=== PATIENT | female | born 1970 | race Caucasian/White ===

== ENCOUNTER → 2016-07-22 | Outpatient (CLI) | payer SELFPAY ==
[~2016-07-22] MED LIST: DOXYCYLINE50 MG PO; FIORICET 325 MG1 TAB PO; Zofran4 MG PO
[2016-07-22 08:23] LABS: BASO # 0.1 10*3/uL (0.0-0.1); BASO % 0.6 % (0.0-1.0); EOS # 0.5 10*3/uL (0.0-0.4); EOS % 6.7 % (1.0-4.0); HEMATOCRIT 40.1 % (37.0-47.0); HEMOGLOBIN 13.2 g/dl (12.0-16.0); LYMPH % 37.7 % (27.0-41.0); MEAN CELL VOLUME 90.5 fl (81.0-99.0); MEAN CORPUSCULAR HGB 29.8 pg (27.0-31.0); MEAN CORPUSCULAR HGB CONC 32.9 g/dl (33.0-37.0); MEAN PLATELET VOLUME 10.4 fl (9.6-12.3); MONO # 0.7 10*3/uL (0.1-1.0); MONO % 9.4 % (3.0-9.0); NEUT # 3.6 10*3/uL (2.3-7.9); NEUT % 45.2 % (47.0-73.0); PLATELET COUNT AUTOMATED 270 10*3/uL (130-400); RED BLOOD COUNT 4.43 10*6/uL (4.10-5.10); RED CELL DISTRI WIDTH 12.7 % (0-14.5); WHITE BLOOD COUNT 7.9 10*3/uL (4.8-10.8)
[2016-07-22 08:47] LABS: ALBUMIN 3.6 gm/dl (3.1-4.5); ALKALINE PHOSPHATASE 48 U/L (45-117); BILIRUBIN, TOTAL 0.3 mg/dl (0.2-1.0); BUN 18 mg/dl (7-24); CARBON DIOXIDE 26 mmol/L (21-32); CHLORIDE 111 mmol/L (98-107); CHOLESTEROL 116 mg/dL (<200); EST GLOM FILT AFRICAN AMERICAN > 60 ml/min; GLUCOSE 88 mg/dL (65-99); POTASSIUM 4.4 mmol/L (3.5-5.1); SGOT/AST 9 IU/L (3-35); SGPT/ALT 16 U/L (12-78); SODIUM 144 mmol/L (136-145); TRIGLYCERIDES 68 mg/dl (<150); VLDL CHOLESTEROL 14 mg/dL (6-40)
[2016-07-22 08:56] LABS: HDL CHOLESTEROL 53 mg/dl (40-60); LDL CHOLESTEROL 49 mg/dL (9-159)
== END | disposition home or self-care (01) ==
LOC: LAB 07:48
PROVIDERS: Nurse Practitioner Family
DX: R53.83 Other fatigue (principal); R10.9 Unspecified abdominal pain; Z86.19 Personal history of other infectious and parasitic diseases

== ENCOUNTER → 2016-07-29 | Outpatient (CLI) | payer SELFPAY | END | disposition home or self-care (01) | LOC: US 08:55 | DX: R10.84 Generalized abdominal pain (principal); M54.9 Dorsalgia, unspecified; Z90.49 Acquired absence of other specified parts of digestive tract ==

== ENCOUNTER → 2016-08-05 | Outpatient (CLI) | payer SELFPAY | END | disposition home or self-care (01) | LOC: LAB 13:11 | PROVIDERS: Nurse Practitioner Family | DX: R10.9 Unspecified abdominal pain (principal) ==

== ENCOUNTER → 2016-11-06 | Outpatient (CLI) | payer MEDICAID | END | disposition home or self-care (01) | LOC: US 09:50 | DX: N60.02 Solitary cyst of left breast (principal); N60.42 Mammary duct ectasia of left breast; N61.0 Mastitis without abscess; Z79.2 Long term (current) use of antibiotics ==

== ENCOUNTER → 2017-08-24 | Outpatient (CLI) | payer OTHER | END | disposition home or self-care (01) | LOC: MAMMO 13:14 | DX: R92.8 Other abnormal and inconclusive findings on diagnostic imaging of breast (principal); Z87.898 Personal history of other specified conditions ==

== ENCOUNTER → 2017-08-26 | Outpatient (CLI) | payer OTHER | END | disposition home or self-care (01) | LOC: US 14:27 | DX: N92.6 Irregular menstruation, unspecified (principal) ==